=== PATIENT | female | born 1985 | race Caucasian/White ===

== ENCOUNTER 2018-06-23 10:52 | Outpatient (CLI) | payer BC ==
--- NOTE | 2018-06-23 12:12 | RAD ---
LEFT ANKLE 3 VIEWS: HISTORY: Pain in the left ankle. FINDINGS/IMPRESSION: The ankle mortise is maintained. No fracture, dislocation, or bony destruction is seen. A plantar c alcaneal spur is present. POS: [facility]
--- NOTE | 2018-06-23 12:13 | RAD ---
LEFT FOOT 3 VIEWS: HISTORY: Pain in the left foot. FINDINGS/IMPRESSION: No fracture, dislocation, or bony destruction is seen. A plantar calcaneal spur is present. There i s a suggestion of a pes planus deformity. POS: [facility]
== END 2018-06-23 10:53 | disposition home or self-care (01) ==
LOC: BICRAD 10:52
PROVIDERS: ATTEND Physician Assistant
DX: M25.572 Pain in left ankle and joints of left foot (principal); M77.32 Calcaneal spur, left foot